=== PATIENT | male | born 1985 | race Caucasian/White ===

== ENCOUNTER 2024-03-05 07:49 | Outpatient (REF) | payer SELFPAY ==
[2024-03-05 07:50] VITALS: BP 178/117; PULSE 74; RESP 19; TEMP 36.4; O2SAT 100; BMI 27.1
[2024-03-05 07:52] VITALS: BP 168/112; PULSE 75; RESP 18; O2SAT 100
[2024-03-05 07:58] VITALS: O2SAT 99
--- NOTE | 2024-03-05 07:58 | EKG12_ITS ---
Test Reason : CP Blood Pressure : */* mmHG Vent. Rate : 71 BPM Atrial Rate : 71 BPM P-R Int : 112 ms QRS Dur : 96 ms QT Int : 380 ms P-R-T Axes : 39 69 62 degrees QTcB Int : 412 ms Normal sinus rhythm Normal ECG Confirmed by Manjit Palma ([id number]), supervising editor trailer MARGARET TOSCANO ([id number]) on 03/07/2024 11:34:13 AM Referred By: RU Confirmed By: Manjit Palma
--- NOTE | 2024-03-05 07:59 | EDS_ITS ---
HPI History of Present Illness Chief Complaint: Chest Pain Detail of Chief Complaint: Chest pain Informant: patient Narrative Narrative: Patient presents to the emergency department complaint of chest pain that has had for 1 to 2 weeks intermittently. 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 Describes a sharp stabbing pain in the center of his chest that radiates to between his shoulder blades. Today had some nausea. Pain comes and goes and lasts about 2 minutes at a time. He denies injury to his chest. Denies recent travel or surgery. No history of PE or DVT. He does have history of hypertension. Patient states he is only been in retirement few days. His father in his 60s of congestive heart failure but does not believe he had a heart attack. Patient has no heart history. PFSH PFSH Allergy/AdvReac Type Severity Reaction Status Date / Time No Known Allergies Allergy Verified 03/05/24 07:57 Social History Smoking Status: Current every day smoker tobacco type: cigarettes ROS ROS ED Review of Systems ROS Unobtainable: other Constitutional Constitutional ED: Reports lethargy; Denies chills, fever(s), sweats or weight loss Eyes Eyes: Denies blurry vision, change in vision or diplopia ENT ENT ED: Denies rhinorrhea or sore throat Cardiovascular Cardiovascular: Reports chest pain; Denies orthopnea or racing heartbeat Respiratory/Chest Respiratory/Chest: Denies cough, dyspnea, dyspnea on exertion, orthopnea or sputum Gastrointestinal Gastrointestinal: Denies abdominal pain, diarrhea, nausea or vomiting Genitourinary Genitourinary ED: Denies dysuria, hematuria or urinary frequency Musculoskeletal Musculoskeletal: Denies arthralgias, back pain, myalgias or neck pain Integumentary Denies abscess, Abrasions or rash Neurologic Neurologic: Denies headache(s) or weakness Psychiatric Psychiatric: Denies anxiety, depression or suicidal thoughts Endocrine Endocrinology: Denies polydipsia, polyphagia or polyuria Hematologic/Lymphatic Hematologic/Lymphatic: Denies easy bleeding, easy bruising or lymphadenopathy Allergic/Immunologic Allergic/Immunologic ED: Denies mouth swelling, tongue swelling or urticaria EXAM Physical Exam Const Vital Signs: 03/05/24 07:50 03/05/24 07:52 03/05/24 07:54 Temperature 97.6 F L Temperature Source Temporal Pulse Rate 74 75 Respiratory Rate 19 H 18 Respiratory Effort Normal Blood Pressure 178/117 H 168/112 H Blood Pressure Mean 137 130 Pulse Ox 100 100 Oxygen Delivery Method Room Air Room Air 03/05/24 07:58 03/05/24 08:52 03/05/24 09:00 Temperature Temperature Source Pulse Rate 82 70 Respiratory Rate 18 21 H Respiratory Effort Blood Pressure 152/90 H 158/93 H Blood Pressure Mean 110 114 Pulse Ox 99 99 99 Oxygen Delivery Method Room Air Room Air Room Air 03/05/24 09:19 Temperature 97.7 F L Temperature Source Pulse Rate 70 Respiratory Rate 21 H Respiratory Effort Blood Pressure 158/93 H Blood Pressure Mean 114 Pulse Ox 99 Oxygen Delivery Method Positive well nourished and well developed General Appearance ED: well developed and NAD HEENT Reports TM's clear and moist mucous membranes normocephalic and atraumatic; Negative for trauma or tenderness Tympanic Membrane ED: Yes TM's clear Eyes PERRL and EOMs intact bilaterally General Eye ED: Negative for pale conjunctiva or scleral icterus Neck no lymphadenopathy, supple and no JVD General: Negative for tenderness Chest Wall inspection of chest normal and palpation of chest normal Chest: Negative for tenderness Resp normal respiratory effort and clear to auscultation bilaterally Effort and Inspection: Negative for respiratory distress or pain with movement Auscultation: Negative for rhonchi, wheezes or diminished lung sounds Cardio regular rate, regular rhythm, S1 normal heart sound, S2 normal heart sound and no murmurs Peripheral Pulses: pulses 2+ throughout GI normal to inspection, nondistended, normoactive bowel sounds, soft to palpation, non-tender, non-distended and no masses Back/Spine no CVA tenderness and no thoracic nor lumbar tenderness Back/Spine Narrative: Evaluation of his back reveals no erythema or warmth or rashes. Cannot reproduce pain with palpation of his upper back. Extremity normal to inspection General Extremety ED: Negative for edema General Extremity: Negative for edema Neuro oriented x3, CN's II-XII intact bilaterally, no sensory deficits noted and gait normal Sensorium / Orientation: awake, alert, oriented to person, oriented to place and oriented to time Motor Exam: strength 5/5 throughout and strength abnormal Psych mental status grossly normal Skin no rashes or lesions noted and no wounds MDM MDM MDM Narrative Medical decision making narrative: Patient presents with intermittent chest pain that radiates through to his back that is been going on for a week or 2 multiple times throughout the day can last up to 10 minutes at a time. Currently discomfort is minimal. He said some mild nausea today. Denies heartburn symptoms. He presents from retirement. No PE risk factors. Denies recent illness. CBC with differential of a showed an elevated white count of 15.4 with hemoglobin 16.7 and platelet count of 371. Chemistries unremarkable. LFTs were normal. Lipase slightly elevated at 112. He does not have any abdominal pain on exam therefore I do not feel he has pancreatitis. He denies abdominal pain when eating. I do not feel that his exam and history consistent with gallbladder disease. Also in the differential would be PE therefore I obtained a D-dimer which was negative. EKG obtained arrival showed a sinus rhythm with rate of 71 bpm with no acute ST segment changes. No evidence for pericarditis. Clinically I do not feel he has pericarditis. Troponin was normal. Patient does have a slightly elevated WBC count and states he has had some cold symptoms for about 3 to 4 days. Mild cough but no sputum. There is no evidence of pneumonia on his chest x-ray. Suspect likely viral etiology. At this point etiology of his chest pain unclear. Do not think he is having acute coronary syndrome. Advised to follow-up with primary care physician within next 5 to 7 days Lab Data Attestation: I reviewed the patient's lab results. Labs: Laboratory Results - last 24 hr 03/05/24 07:58 WBC 15.4 H RBC 5.78 Hgb 16.7 H Hct 49.4 MCV 85.5 MCH 28.9 MCHC 33.8 RDW Std Deviation 37.5 RDW Coeff of Robbin 12.2 Plt Count 371 MPV 8.4 Immature Gran % (Auto) 0.300 Neut % (Auto) 83.7 H Lymph % (Auto) 10.2 L Gulf % (Auto) 5.0 Eos % (Auto) 0.5 Baso % (Auto) 0.3 Absolute Neuts (auto) 12.9 H Absolute Lymphs (auto) 1.58 Nucleated RBC % 0 D-Dimer Quant (PE/DVT) 0.41 Sodium 139 Potassium 4.0 Chloride 106 Carbon Dioxide 28.0 Anion Gap 5 BUN 12 Creatinine 1.32 H Estim Creat Clear Calc 97.13 Est GFR (MDRD) Af Amer 77 Est GFR (MDRD) Non-Af 64 BUN/Creatinine Ratio 9.1 L Glucose 87 Calcium 9.4 Total Bilirubin 0.50 Direct Bilirubin 0.12 AST 15 ALT 24 Alkaline Phosphatase 95 Troponin I High Sens 11 Total Protein 7.9 Albumin 4.1 Globulin 3.8 Lipase 112 H Radiography Diagnostic Testing: Clinical Impression(s) from Imaging Studies Chest X-Ray 03/05/24 08:08 IMPRESSION: No radiographic evidence of acute cardiopulmonary disease. Electronically Signed: Alissa Soria MD at 8:27 EST , EKG Initial EKG: Attestation: I personally reviewed and interpreted this EKG as follows: Comments: Sinus rhythm with ventricular rate of 71 bpm with no acute ST segment changes Discharge Plan Triage Chief Complaint: Chest Pain ED Provider: Devonte Pulido Dx/Rx/DC Orders Clinical Impression: Chest pain Instructions: ED Chest Pain, Uncertain Cause Primary Care Provider: Care Physician,No Primary Referrals: NOT,DEFINED [Non-Staff] - Activity Restrictions/Additional Instructions: Follow-up with your primary care physician within next 5 to 7 days Print Language: Lithuanian Disposition Disposition: Home, Self Care
[2024-03-05 08:05] LABS: Absolute Lymphocyte Count 1.58 X10^3/uL (0.83-4.51); Absolute Neutrophil Count 12.9 X10^3/uL (2.0-7.7); Basophil# 0.05 X10^3/uL; Basophil% 0.3 % (0-1); Eosinophil# 0.07 X10^3/uL; Eosinophils% 0.5 % (0-5); Hematocrit 49.4 % (40-54); Hemoglobin 16.7 g/dL (13.0-16.5); Lymphocyte # 1.58 X10^3/ul (0.83-4.51); Lymphocyte % 10.2 % (19-41); Mean Corp Hgb Conc 33.8 g/dL (32-36); Mean Corpuscular Hgb 28.9 pg (27.0-32.0); Mean Corpuscular Volume 85.5 fL (80-94); Mean Platelet Vol. 8.4 fl (6.2-12.0); Monocyte# 0.77 X10^3/uL; NRBC Flagged by Analyzer 0 % (0-5); Neutrophil # 12.92 X10^3/uL (2.7-7.7); Neutrophil % 83.7 % (47-70); Platelet Count 371 K/mm3 (150-450); RBC Distribution Width CV 12.2 % (11.6-14.6); RBC Distribution Width SD 37.5 fl (35.1-43.9); Red Blood Count 5.78 M/mm3 (4.6-6.2); White Blood Count 15.4 K/mm3 (4.4-11.0)
[2024-03-05] MEDS: Aspirin 81 MG TAB.CHEW 324 MG PO (08:06)
--- NOTE | 2024-03-05 08:08 | RAD_ITS ---
INDICATION: chest pain EXAMINATION/TECHNIQUE: X-RAY - XR Chest 1 View COMPARISON: No relevant prior comparison study available FINDINGS: LINES/DEVICES: None. LUNGS: No consolidation, edema or effusion. No pneumothorax. MEDIASTINUM AND CARDIOVASCULAR STRUCTURES: Cardiac silhouette not enlarged. Central airways and mediastinal contour are unremarkable. BONES AND SOFT TISSUES: There are postsurgical changes of the right anterior fifth, sixth and seventh ribs. There are old left lateral rib fractures. RAD/Chest 1 View (Portable) IMPRESSION: No radiographic evidence of acute cardiopulmonary disease. Electronically Signed: Alissa Soria MD at 8:27 EST ,
[2024-03-05 08:24] LABS: AST(SGOT) 15 U/L (15-37); Alanine Aminotransfer ALT/SGPT 24 U/L (16-61); Albumin, Serum 4.1 g/dL (3.2-5.0); Alkaline Phosphatase 95 U/L (45-117); Anion Gap 5 (5-15); BUN 12 mg/dL (7-18); BUN/Creat Ratio 9.1 RATIO (10-20); Bilirubin, Direct 0.12 mg/dL (0.00-0.30); Calcium,Total 9.4 mg/dL (8.5-10.1); Chloride 106 mmol/L (98-107); Creatinine, Serum 1.32 mg/dL (0.70-1.30); EST Glomerular Filtration Rate 64 mL/min (>60); Est Glom Filt Rate - Afr Amer 77 mL/min (>60); Estimated Creatinine Clearance 97.13 ml/min; Globulin 3.8 g/dL (2.2-4.2); Glucose 87 mg/dL (74-106); Lipase 112 U/L (13-75); Protein, Total 7.9 g/dL (6.4-8.2); Sodium Level 139 mmol/L (136-145); Troponin-I HS (w/2H Reflex) 11 pg/mL (3.0-78.0)
[2024-03-05 08:32] LABS: D-Dimer Quantitative (DVT/PE) 0.41 FEU/ug/m (0.27-0.49)
[2024-03-05 08:52] VITALS: BP 152/90; PULSE 82; RESP 18; O2SAT 99
[2024-03-05 09:00] VITALS: BP 158/93; PULSE 70; RESP 21; O2SAT 99
[2024-03-05 09:19] VITALS: BP 158/93; PULSE 70; RESP 21; TEMP 36.5; O2SAT 99
[2024-03-05 10:03] LABS: Reflex Troponin-HS? (from REC) Y
== END 2024-03-05 09:22 | disposition home or self-care (01) ==
LOC: EDREF 07:49
PROVIDERS: Visit Provider Emergency Medicine
DX: R07.9 Chest pain, unspecified (principal); F17.210 Nicotine dependence, cigarettes, uncomplicated
CPT/HCPCS: 71045; 80048; 80076; 83690; 84484; 85025; 85379; 93005; A4216